=== PATIENT | male | born 1940 | race Caucasian/White ===

== ENCOUNTER 2019-06-01 19:13 | Inpatient (IN) | payer OTHER, MEDICARE ==
[~2019-06-01] VITALS: Ht 180.3 cm; Wt 83.9 kg
[2019-06-01 19:15] VITALS: BP_SYST 146
[2019-06-01] MEDS ORDERED: ONDANSETRON HCL 4 MG/2 ML VIAL IVP ONE (20:00)
[2019-06-01] MEDS ORDERED: NACL 0.9% 1,000 ML IV ONE (20:00)
[2019-06-01 20:14] LABS: BASOPHILS % (AUTO) 0.1 % (0.0-2.0); EOSINOPHILS # (AUTO) 0.1 K/uL (0.0-0.4); EOSINOPHILS % (AUTO) 0.5 % (0.0-4.0); HEMATOCRIT 43.6 % (36-54); HEMOGLOBIN 14.5 g/dL (14.0-18.0); LYMPHOCYTES # (AUTO) 0.5 K/uL (1.0-5.5); MEAN CORPUSCULAR HEMOGLOBIN 31 pg (27-31); MEAN CORPUSCULAR HGB CONC 33 % (32-36); MEAN CORPUSCULAR VOLUME 93 fL (79.0-98.0); MONOCYTES # (AUTO) 0.7 K/uL (0.0-1.0); MONOCYTES % (AUTO) 6.1 % (1.7-9.3); NEUTROPHILS # (AUTO) 10.2 K/uL (1.8-7.7); NEUTROPHILS % (AUTO) 89.3 % (40.0-70.0); PLATELET COUNT (AUTO) 156 K/uL (130-430); RED BLOOD CELL COUNT(AUTO) 4.72 MIL/uL (4.2-6.2); RED CELL DISTRIBUTION WIDTH 13.5 % (9.0-15.0); WHITE BLOOD COUNT (AUTO) 11.4 K/uL (4.8-10.8)
[2019-06-01 20:24] LABS: ANION GAP 8 (5-15); CALCIUM 9.5 mg/dL (8.4-11.0); CHLORIDE 97 mmol/L (98-107); CREATININE 1.31 mg/dL (0.55-1.30); GLUCOSE 100 mg/dL (70-99); POTASSIUM 4.2 mmol/L (3.5-5.1); SODIUM SERUM 132 mmol/L (136-145); UREA NITROGEN, BLOOD 22 mg/dL (8-21)
[2019-06-01 20:29] LABS: ALANINE AMINOTRANSFERASE 20 U/L (12-78); ALBUMIN 3.6 g/dL (3.4-4.8); ASPARTATE AMINOTRANSFERASE 18 U/L (10-37)
[2019-06-01 20:32] LABS: INR 1.1 (0.80-1.20)
[2019-06-01] MEDS ORDERED: OMEP40CA33 PO (21:07)
[2019-06-01] MEDS ORDERED: MECL12.584 PO (21:07)
[2019-06-01] MEDS ORDERED: ATOR-1 PO (21:07)
[2019-06-01] MEDS ORDERED: IPRA42SP NS (21:07)
[2019-06-01 22:30] LABS: BILIRUBIN,URINE NEGATIVE (NEGATIVE); BLOOD, URINE NEGATIVE (NEGATIVE); CLARITY/URINE CLEAR (CLEAR); COLOR,URINE YELLOW (YELLOW); GLUCOSE,URINE NEGATIVE (NEGATIVE); KETONES,URINE NEGATIVE (NEGATIVE); LEUKOCYTE ESTERASE ,URINE NEGATIVE (NEGATIVE); NITRITE, URINE NEGATIVE (NEGATIVE); PH,URINE 6.5 (5.0-8.0); PROTEIN URINE NEGATIVE (NEGATIVE); UROBILINOGEN,URINE 0.2 (0.2-1.0)
[2019-06-01 22:46] VITALS: BP_SYST 145
[2019-06-02] MEDS: ACETAMINOPHEN 650 MG/20.3 ML UDC PO PRN ×2 (00:27→17:26)
[2019-06-02 01:05] VITALS: BP_SYST 111
[2019-06-02 01:27] VITALS: BP_SYST 111
[2019-06-02] MEDS ORDERED: IPRATROPIUM/ALBUTEROL SULFATE 3 ML AMPUL.NEB (DUONEB) INH PRN (06:30)
[2019-06-02 08:00] VITALS: BP_SYST 122
[2019-06-02] MEDS: ATORVASTATIN 20 MG TABLET PO SCH (08:51)
[2019-06-02] MEDS: PANTOPRAZOLE SODIUM 40 MG TAB PO SCH (08:51)
[2019-06-02] MEDS ORDERED: AZITHROMYCIN 250 MG TABLET PO ONE (09:00)
[2019-06-02] MEDS: cefTRIAXone 1 GM in D5W 50 ML IV SCH (10:51)
[2019-06-02 12:00] VITALS: BP_SYST 128
[2019-06-02 17:00] VITALS: BP_SYST 143
[2019-06-02] MEDS: NACL 0.9% 1,000 ML IV SCH (18:32)
[2019-06-02 20:00] VITALS: BP_SYST 108
[2019-06-02] MEDS ORDERED: LEVOFLOXACIN 500 MG/D5W 100 ML IV SCH (21:00)
[2019-06-03 00:50] VITALS: BP_SYST 143
[2019-06-03] MEDS: ACETAMINOPHEN 650 MG/20.3 ML UDC PO PRN (02:56)
[2019-06-03 04:00] VITALS: BP_SYST 100
[2019-06-03 04:59] LABS: ALANINE AMINOTRANSFERASE 16 U/L (12-78); ALBUMIN 2.6 g/dL (3.4-4.8); ANION GAP 8 (5-15); ASPARTATE AMINOTRANSFERASE 15 U/L (10-37); CALCIUM 8.5 mg/dL (8.4-11.0); CHLORIDE 98 mmol/L (98-107); CREATININE 1.28 mg/dL (0.55-1.30); GLUCOSE 124 mg/dL (70-99); SODIUM SERUM 131 mmol/L (136-145); TOTAL BILIRUBIN 0.7 mg/dL (0.0-1.0); UREA NITROGEN, BLOOD 19 mg/dL (8-21)
[2019-06-03 06:25] LABS: BASOPHILS % (AUTO) 0.2 % (0.0-2.0); EOSINOPHILS % (AUTO) 0.2 % (0.0-4.0); HEMATOCRIT 37.6 % (36-54); HEMOGLOBIN 12.7 g/dL (14.0-18.0); LYMPHOCYTES # (AUTO) 0.6 K/uL (1.0-5.5); LYMPHOCYTES % (AUTO) 8.8 % (20.5-51.5); MEAN CORPUSCULAR HEMOGLOBIN 31 pg (27-31); MEAN CORPUSCULAR HGB CONC 34 % (32-36); MEAN CORPUSCULAR VOLUME 93 fL (79.0-98.0); MONOCYTES # (AUTO) 0.4 K/uL (0.0-1.0); MONOCYTES % (AUTO) 6.1 % (1.7-9.3); NEUTROPHILS # (AUTO) 5.5 K/uL (1.8-7.7); NEUTROPHILS % (AUTO) 84.7 % (40.0-70.0); PLATELET COUNT (AUTO) 147 K/uL (130-430); RED BLOOD CELL COUNT(AUTO) 4.07 MIL/uL (4.2-6.2); RED CELL DISTRIBUTION WIDTH 13.6 % (9.0-15.0); WHITE BLOOD COUNT (AUTO) 6.5 K/uL (4.8-10.8)
[2019-06-03] MEDS: AZITHROMYCIN 250 MG TABLET PO SCH (07:54)
[2019-06-03] MEDS: PANTOPRAZOLE SODIUM 40 MG TAB PO SCH (07:54)
[2019-06-03] MEDS: cefTRIAXone 1 GM in D5W 50 ML IV SCH (07:55)
[2019-06-03] MEDS: ATORVASTATIN 20 MG TABLET PO SCH (07:55)
[2019-06-03 08:01] VITALS: BP_SYST 121
[2019-06-03] MEDS ORDERED: KCL 20 mEq in 100 mL (PREMIX) 200 ML IV ONE (08:30)
[2019-06-03] MEDS: NACL 0.9% 1,000 ML IV SCH (10:51)
[2019-06-03 12:35] VITALS: BP_SYST 125
[2019-06-03 16:39] VITALS: BP_SYST 125
[2019-06-03 20:29] VITALS: BP_SYST 133
[2019-06-04 00:42] VITALS: BP_SYST 159
[2019-06-04 04:41] LABS: ALANINE AMINOTRANSFERASE 6 U/L (12-78); ALBUMIN 2.5 g/dL (3.4-4.8); ANION GAP 7 (5-15); ASPARTATE AMINOTRANSFERASE 19 U/L (10-37); CALCIUM 8.5 mg/dL (8.4-11.0); CHLORIDE 103 mmol/L (98-107); GLUCOSE 99 mg/dL (70-99); POTASSIUM 3.2 mmol/L (3.5-5.1); SODIUM SERUM 135 mmol/L (136-145); TOTAL BILIRUBIN 0.4 mg/dL (0.0-1.0); UREA NITROGEN, BLOOD 16 mg/dL (8-21)
[2019-06-04 08:00] VITALS: BP_SYST 121
[2019-06-04 08:32] VITALS: BP_SYST 121
[2019-06-04] MEDS ORDERED: KCL 40 mEq in 100 mL (PREMIX) 100 ML IV ONE (09:15)
[2019-06-04] MEDS: AZITHROMYCIN 250 MG TABLET PO SCH (09:28)
[2019-06-04] MEDS: ATORVASTATIN 20 MG TABLET PO SCH (09:28)
[2019-06-04] MEDS: PANTOPRAZOLE SODIUM 40 MG TAB PO SCH (09:28)
[2019-06-04] MEDS: cefTRIAXone 1 GM in D5W 50 ML IV SCH (09:30)
[2019-06-04] MEDS ORDERED: POTASSIUM CHLORIDE 40 MEQ in NS 250 ML IV ONE (09:30)
[2019-06-04] MEDS ORDERED: POTASSIUM CHLORIDE 20 MEQ TAB.PRT.SR PO ONE (09:45)
[2019-06-04] MEDS ORDERED: LEVAQUIN PO (11:02)
[2019-06-04] MEDS ORDERED: FLA250 PO (11:03)
[2019-06-04] MEDS ORDERED: LACT1CAP57 PO (11:03)
[2019-06-04] MEDS ORDERED: ALBU8.5H8 INH (11:05)
[2019-06-04 11:15] VITALS: BP_SYST 131
[2019-06-04 11:19] VITALS: BP_SYST 131
== END 2019-06-04 11:43 | disposition home or self-care (01) | DRG 313 ==
LOC: SED 19:13 → STU 22:09 → SMU 06-04 09:18
PROVIDERS: ADMIT Internal Medicine Hospice and Palliative Medicine; ATTEND Internal Medicine Hospice and Palliative Medicine
DX: R07.89 Other chest pain (principal); E87.1 Hypo-osmolality and hyponatremia; E78.5 Hyperlipidemia, unspecified; I10 Essential (primary) hypertension; I25.10 Atherosclerotic heart disease of native coronary artery without angina pectoris; K74.60 Unspecified cirrhosis of liver; Z95.5 Presence of coronary angioplasty implant and graft; Z79.899 Other long term (current) drug therapy; N28.9 Disorder of kidney and ureter, unspecified
CPT/HCPCS: 36415; 71045; 71250-TC; 80053; 81003; 83605; 83735-TC; 84484; 85025; 85610-TC; 85730-TC; 87040-TC; 87086; 87230-TC; 93005; 96361; 96374; 99285; G0378; J0696; J1956; J2405; J3480; J7030; J7050; J7060; Q0144

== ENCOUNTER 2023-12-10 07:29 | Day surgery (SDC) | payer OTHER, MEDICARE ==
[~2023-12-10] VITALS: Ht 177.8 cm; Wt 80.7 kg
[~2023-12-10 07:29] MED LIST: ALBU8.5H8 INH; ATOR-1 PO; FLA250 PO; IPRA42SP NS; LACT1CAP57 PO; LEVAQUIN PO; MECL-225 PO; OMEP40CA20 PO
[2023-12-10] MEDS ORDERED: MEPERIDINE 100 MG INJ. 100 MG/ML VIAL ONE (07:52)
[2023-12-10] MEDS ORDERED: MIDAZOLAM HCL 5 MG/5 ML VIAL ONE ×2 (07:52→10:43)
[2023-12-10 11:33] VITALS: O2SAT 98
[2023-12-10 18:23] VITALS: BP_SYST 162; PULSE 67; RESP 19
== END 2023-12-10 12:05 | disposition home or self-care (01) ==
LOC: SDS 07:29 → SMU 07:30 → SDS 12:05
PROVIDERS: ATTEND Internal Medicine Gastroenterology
DX: R19.4 Change in bowel habit (principal); D12.0 Benign neoplasm of cecum; K64.8 Other hemorrhoids; Z86.010 Personal history of colon polyps; I10 Essential (primary) hypertension; E78.5 Hyperlipidemia, unspecified; Z95.5 Presence of coronary angioplasty implant and graft; Z79.899 Other long term (current) drug therapy; Z87.891 Personal history of nicotine dependence
CPT/HCPCS: 45385; 88305; 99153; 99152; G0378; J2250; J2175